=== PATIENT | male | born 1960 | race Caucasian/White ===

== ENCOUNTER → 2017-08-15 | Outpatient (CLI) | payer BC ==
[~2017-08-15] MED LIST: ADVICOR PO; ANT25 PO; ASCA500 PO; ASPEC81 PO; ATV5 PO; CHOL100010 PO; COQ10 PO; MELA3TAB7 PO; PANT40TA PO; POTAPOW29 PO; [UNRECOGNIZED DRUG - OTHER] PO
--- NOTE | 2017-08-15 16:32 | DIAGNOSTIC IMAGING REPORT ---
LEFT HIP 2 VIEWS HISTORY: LEFT HIP PAIN COMPARISON: None. FINDINGS: There is no fracture or dislocation. Soft tissues are unremarkable. Moderate osteoarthritis within the left hip demonstrated by cartilage space narrowing, marginal osteophytes, and subchondral sclerosis. IMPRESSION: No fractures. Moderate left hip osteoarthritis. Electronically signed by: Leonel Thakur M.D. 08/15/2017 4:31 PM Dictated Date/Time: 08/15/2017 4:30 PM
== END | disposition home or self-care (01) ==
LOC: C.RAD1850 16:16
PROVIDERS: ATTEND Family Medicine
DX: M16.12 Unilateral primary osteoarthritis, left hip (principal); E78.5 Hyperlipidemia, unspecified; E11.9 Type 2 diabetes mellitus without complications

== ENCOUNTER 2019-05-04 05:06 | Inpatient (IN) ==
--- NOTE | 2019-03-29 15:39 | PAT Medication Instructions ---
Medication Instructions Date of Service March 29, 2019 Home Medications Cbd Oil Cap 1 cap PO BID Medical Marijuana 1 dose INHALATION UD PRN coQ10 (ubiquinol) 100 mg PO BID losartan-hydrochlorothiazide 1 tab PO QAM lovastatin 10 mg PO HS meloxicam 15 mg PO DAILY metformin 1,000 mg PO QAM omega 0-thb-piw-fish oil [Fish Oil] 2 cap PO BID pantoprazole 40 mg PO DAILY PRN Continue as directed Cbd Oil Cap 1 cap PO BID Medical Marijuana 1 dose INHALATION UD PRN ASK your surgeon for instructions meloxicam 15 mg PO DAILY STOP taking 2 weeks before surgery (or as soon as possible if surgery is within 2 weeks) coQ10 (ubiquinol) 100 mg PO BID omega 9-dci-bvq-fish oil [Fish Oil] 2 cap PO BID DO NOT take the morning of surgery losartan-hydrochlorothiazide 1 tab PO QAM metformin 1,000 mg PO QAM Take morning of surgery With a small sip of water, OTHERWISE NOTHING TO EAT OR DRINK AFTER MIDNIGHT: pantoprazole 40 mg PO DAILY PRN (if needed) Take evening before surgery lovastatin 10 mg PO HS Other Notes If you have any questions please call us at [phone] or [phone] or [phone] or [phone]
--- NOTE | 2019-04-03 09:33 | Anesthesiology Consultation ---
Date of Service April 03, 2019 Assessment & Plan (1) Encounter for pre-operative examination: - Check BSG AM DOS Chart Review Chart Review: Acceptable Risk for Surgery and Patient seen in Pre Admission Testing Teaching & Discussion Pre-Anesthesia Teaching/Discussion Notes: Instructed NPO after midnight before surgery,except medications with 15 cc of water. Medication instructions provided according to the PAT guidelines. History Surgery Operation Date: 05/04/19 13:00 Proposed Procedures p Left Anterior Total Hip Replacement - Paulo Cooper DO Height/Weight Height: 5 ft 5 in Weight: 83.6 kg Allergies Allergy/AdvReac Type Severity Reaction Status Date / Time Stgrvmt-Vpj-Vsc Reductase Allergy Mild MYALGIAS Verified 04/03/19 09:46 Inhibitor ANTI-DEPRESSANTS Allergy Intermediate DISORIENTATION- Uncoded 04/03/19 09:46 UNSURE OF EXACT DRUG NAMES Medications Home Medications Medication Instructions Recorded Confirmed Last Taken Cbd Oil Cap 1 cap PO BID 03/29/19 03/29/19 Unknown Medical Marijuana 1 dose INHALATION UD PRN 03/29/19 03/29/19 Unknown coQ10 (ubiquinol) 100 mg PO BID 03/29/19 03/29/19 Unknown losartan-hydrochlorothiazide 1 tab PO QAM 03/29/19 03/29/19 Unknown lovastatin 10 mg PO HS 03/29/19 03/29/19 Unknown meloxicam 15 mg PO DAILY 03/29/19 03/29/19 Unknown metformin 1,000 mg PO QAM 03/29/19 03/29/19 Unknown omega 7-mxy-uqm-fish oil [Fish Oil] 2 cap PO BID 03/29/19 03/29/19 Unknown pantoprazole 40 mg PO DAILY PRN 03/29/19 03/29/19 Unknown Past Medical History Medical History Anxiety Depression Diabetes mellitus, type 2 NIDDM GERD (gastroesophageal reflux disease) CONTROLLED Hyperlipidemia Hypertension Osteoarthritis Sleep apnea NO DEVICE Exercise / Class Metabolic Activity II 4-5 Yardwork/Stairs/Walk up hill Past Family History Family History Mother No problems noted. Father Family history of diabetes mellitus Grandfather (Paternal) Family history of diabetes mellitus Grandmother (Paternal) Family history of diabetes mellitus Past Surgical History Surgical History History of colonoscopy History of esophagogastroduodenoscopy (EGD) History of nasal septoplasty History of tonsillectomy History of tooth extraction Hx of hemorrhoidectomy Hx of vasectomy S/P LASIK surgery of both eyes Past Anesthesia History No Hx of Anesthesia Complications and No Family Hx of Anesthesia Complications History of PONV No Hx of PONV and Hx of Motion Sickness (OCCASIONAL) Social History Smoking Status: Never smoker Do You Dip or Chew Tobacco: No Hx Alcohol Use: Yes Alcohol type: beer and hard liquor alcohol intake frequency: a few times a month Hx Substance Use: No Last Used Substance Other:: MEDICAL MARIJUANA- INHALATION PRN (WILL BRING CARD AM DOS) Review of Systems Patient denies chest pain, shortness of breath, dyspnea on exertion, cough, wheezing, palpitations. Physical Exam Vital Signs VITALS BP 164/95 P 60 TEMP 98.1 SP02 98%RA RESP 16 PHYSICAL Full neck and c-spine range of motion. Full TMJ range of motion. TMD 4 finger breaths Mallampati Score 3 Dentition: permanent implants on sides/back Lungs: clear throughout to auscultation Cardiac: regular rate and rhythm, no murmurs noted Spine: normal Carotid arteries: negative bruit Extremities: no edema Trimmed umanzor Testing Laboratory Results 04/03/19 10:06 04/03/19 10:06 04/03/19 04/03/19 04/03/19 10:06 10:06 10:06 PT 10.0 INR 1.0 APTT 27.1 Hemoglobin A1c 5.9 H Blood Type O Positive Antibody Screen NEGATIVE Electrocardiogram Date: 04/03/19 Findings: + NSR @ (61) Chest X-Ray Date: 04/03/19 Findings: + NAD
--- NOTE | 2019-04-03 10:38 | XRay Report ---
XR chest Pre-admission PA/Lat CLINICAL HISTORY: Preoperative chest COMPARISON STUDY: No previous studies for comparison. FINDINGS: The cardiac and mediastinal contours are normal. There is no evidence of focal pulmonary co nsolidation. There is no evidence of failure. No pleural effusions are visualized.[ IMPRESSION: No active disease in the chest. Electronically signed by: Issa Mccormick M.D. 04/03/2019 10:36 AM
[2019-04-03 10:44] LABS: Basophils # (auto) 0.02 K/uL (0-0.2); Basophils % (auto) 0.3 %; Eosinophils # (auto) 0.15 K/uL (0-0.5); Eosinophils % (auto) 2.3 %; Hematocrit (blood only) 42.5 % (42-52); Hemoglobin 15.7 g/dL (14.0-18.0); Immature Granulocytes # (auto) 0.02 K/uL (0.00-0.02); Immature Granulocytes % (auto) 0.3 %; Lymphocytes % (auto) 36.5 %; Mean Corpuscular Hgb Conc 36.9 g/dL (32-36); Mean Corpuscular Volume 83.8 fL (80-100); Mean Platelet Volume 9.3 fL (7.4-10.4); Monocytes # (auto) 0.36 K/uL (0.11-0.59); Monocytes % (auto) 5.5 %; Neutrophils # (auto) 3.62 K/uL (1.4-6.5); Neutrophils % (auto) 55.1 %; Platelet Count 178 K/uL (130-400); RDW Coefficient of Variation 12.1 % (11.5-14.5); RDW Standard Deviation 36.5 fL (36.4-46.3); Red Blood Count 5.07 M/uL (4.7-6.1); White Blood Count 6.57 K/uL (4.8-10.8)
[2019-04-03 10:52] LABS: Partial Thromboplastin Time 27.1 Seconds (21.0-31.0)
[2019-04-03 10:54] LABS: Estimated Average Glucose 123 mg/dl; Hemoglobin A1C 5.9 % (4.5-5.6)
[2019-04-03 10:55] LABS: BUN Creatinine Ratio 11.9 (10-20); Creatinine Clr Calc Pharmacy 74.4 ml/min; Est GFR (Non-African American) 76.8; Potassium 3.5 mmol/L (3.5-5.1)
--- NOTE | 2019-05-03 14:29 | History & Physical Report ---
Date of Service May 03, 2019 Assessment & Plan (1) Osteoarthritis of left hip: We will proceed with a left anterior total hip arthroplasty. Postoperatively he will be placed on aspirin for DVT prophylaxis. He would like to use Dilaudid for pain control postoperatively. He will be kept overnight in the hospital for postoperative medical management. He plans to use energy physical therapy upon discharge. Present on Admission?: Yes History of Present Illness Chief Complaint: Primary osteoarthritis of the left hip Primary Care Provider: John Martinez is a pleasant 59-year-old male who has been dealing with chronic increasing left hip and groin pain. X-rays and clinical examination have been diagnostic for primary osteoarthritis of the left hip. After failing conservative treatment, he has elected to proceed with a left anterior total hip arthroplasty. Allergies Allergy/AdvReac Type Severity Reaction Status Date / Time Ywnjcdl-Vhz-Vls Reductase Allergy Mild MYALGIAS Verified 04/03/19 09:46 Inhibitor ANTI-DEPRESSANTS Allergy Intermediate DISORIENTATION- Uncoded 04/03/19 09:46 UNSURE OF EXACT DRUG NAMES Home Medications Home Medications Medication Instructions Recorded Confirmed Type Cbd Oil Cap 1 cap PO BID 03/29/19 03/29/19 History Medical Marijuana 1 dose INHALATION UD PRN 03/29/19 03/29/19 History coQ10 (ubiquinol) 100 mg PO BID 03/29/19 03/29/19 History losartan-hydrochlorothiazide 1 tab PO QAM 03/29/19 03/29/19 History lovastatin 10 mg PO HS 03/29/19 03/29/19 History meloxicam 15 mg PO DAILY 03/29/19 03/29/19 History metformin 1,000 mg PO QAM 03/29/19 03/29/19 History omega 7-yhg-iyp-fish oil [Fish Oil] 2 cap PO BID 03/29/19 03/29/19 History pantoprazole 40 mg PO DAILY PRN 03/29/19 03/29/19 History Past Med/Surg History Medical History Anxiety Depression Diabetes mellitus, type 2 NIDDM GERD (gastroesophageal reflux disease) CONTROLLED Hyperlipidemia Hypertension Osteoarthritis Sleep apnea NO DEVICE Surgical History History of colonoscopy History of esophagogastroduodenoscopy (EGD) History of nasal septoplasty History of tonsillectomy History of tooth extraction Hx of hemorrhoidectomy Hx of vasectomy S/P LASIK surgery of both eyes Family History Mother No problems noted. Father Family history of diabetes mellitus Grandfather (Paternal) Family history of diabetes mellitus Grandmother (Paternal) Family history of diabetes mellitus Social History Preferred Language: Azeri Communication Ability: Effective Mechanical Designer Required: No Beliefs That Will Affect Care: None Current Living Situation: Spouse Other Information That Helps Us Care for You: No Feels Safe at Home: Yes Safety Concerns: Feels Safe At This Time Smoking Status: Never smoker Do You Dip or Chew Tobacco: No Second Hand Exposure: Yes ( A CHILD) Tobacco Cessation Education Requested by Patient: No Hx Alcohol Use: Yes Alcohol type: beer and hard liquor Hx Substance Use: No Review of Systems All systems reviewed & are unremarkable except as noted in HPI & below Physical Exam Constitutional: WD/WN, vitals as above Eyes: PERRL, conjunctivae normal, anicteric sclerae ENMT: external ear and nose normal, oropharynx normal Neck: trachea midline, no thyromegaly Respiratory: normal respiratory effort Cardiovascular: RRR, no murmur, no edema Gastrointestinal (Abdomen): normal bowel sounds, soft, nontender, no hepatosplenomegaly Musculoskeletal: Physical examination of the left hip reveals decreased range of motion with flexion, internal and external rotation. There is significant groin pain with forced internal rotation of the hip his leg lengths are essentially equal. Psychiatric: A+Ox3, euthymic affect Results & Data Diagnostic Findings Radiographs of the left hip and pelvis demonstrate advanced osteoarthritis with joint space narrowing osteophyte formation and vyoc-pj-ricq articulation.
[2019-05-04] MEDS ORDERED: BUPIVACAINE LIPOSOME/PF 266 MG, BUPIVACAINE/EPINEPHRINE 50 ML, SODIUM CHLORIDE 0.9% 30 ... INFIL SCH (06:00)
[2019-05-04] MEDS ORDERED: LR 60ML/HR IV SCH (06:00)
[2019-05-04] MEDS ORDERED: LR 500ML BOLUS, THEN 15ML/HR IV SCH (06:00)
[2019-05-04] MEDS ORDERED: ROPIVACAINE 0.5% HCL/PF 150 MG, BUPIVACAINE 0.5% MPF 30 ML, EPINEPHrine 30MG/30ML (OR U... INFIL SCH (06:00)
[2019-05-04] MEDS ORDERED: TRANEXAMIC ACID 1,000 MG **IV Pre-op IV SCH (06:00)
[2019-05-04] MEDS ORDERED: GABAPENTIN 300 MG x 2 PO SCH (06:00)
[2019-05-04] MEDS ORDERED: LR 500ML BOLUS IV SCH (06:00)
[2019-05-04] MEDS ORDERED: CEFAZOLIN 2000MG 2,000 MG/15 ML SYR IV SCH (06:00)
[2019-05-04] MEDS ORDERED: FAMOTIDINE 20 MG TAB PO SCH (06:00)
[2019-05-04] MEDS ORDERED: ACETAMINOPHEN 500 MG TAB PO SCH (06:00)
[2019-05-04] MEDS ORDERED: TRANEXAMIC ACID 1,000 MG **IV Intra-op IV SCH (06:30)
[2019-05-04] MEDS ORDERED: BUPIVACAINE 0.5 % 5 MG/1 ML PF 10ML VIAL ONE (06:37)
[2019-05-04] MEDS ORDERED: LIDOCAINE HCL 2% 2 ML VIAL/AMP(20MG/ML) INFIL ONE (06:37)
[2019-05-04] MEDS ORDERED: PROPOFOL IV EMULSION 10 MG/ML 20 ML VIAL IV ONE ×3 (06:37→08:10)
[2019-05-04] MEDS ORDERED: MIDAZOLAM HCL 1 MG/ML 2ML VIAL ONE ×2 (06:37)
[2019-05-04] MEDS ORDERED: ORTHO JOINT ANESTHETIC ONE (06:43)
--- NOTE | 2019-05-04 06:54 | History & Physical Bridge Note ---
Date of Service May 04, 2019 History & Physical Bridge Note I have examined the patient, reviewed the History & Physical and in the interval since the performance of the History & Physical I have noted the following changes of clinical significance: no changes noted
[2019-05-04] MEDS ORDERED: HYDROmorphone INJ 1 MG/ML SYRINGE IV PRN (06:57)
[2019-05-04] MEDS ORDERED: ATROPINE SULFATE 0.1 MG/ML 10ML SYR IV PRN (06:57)
[2019-05-04] MEDS ORDERED: ONDANSETRON INJ 2 MG/ML 2 ML VIAL IV PRN ×2 (06:57→10:21)
[2019-05-04] MEDS ORDERED: PHENYLEPHRINE 100MCG/ML 5ML SYR IV PRN (06:57)
[2019-05-04] MEDS ORDERED: ePHEDrine sulfate 50 MG/ML AMP IV PRN (06:57)
[2019-05-04] MEDS ORDERED: KETOROLAC 30 MG/ML VIAL IV PRN (06:57)
[2019-05-04] MEDS ORDERED: PHENYLEPHRINE 100MCG/ML 5ML SYR ONE (08:03)
[2019-05-04] MEDS ORDERED: ePHEDrine sulfate 50 MG/ML SYR ONE (08:03)
--- NOTE | 2019-05-04 08:28 | Operative Report ---
Post Operative Report Pre & Post Diagnosis Operation Date: 05/04/19 07:00 Pre-Op Diagnosis: Left Hip Degenerative Joint Disease Post-Op Diagnosis: Left Hip Degenerative Joint Disease Procedure Operation Date: 05/04/19 07:00 Actual Procedures p Left Anterior Total Hip Replacement- Uncemented(Left) - Paulo Cooper DO Surgeon Paulo Cooper DO Watch Inspector Final Movement Paulo Benrabe PAC Estimated Blood Loss 150 Findings Consistent with Post-Op Diagnosis Specimens Left femoral head Complications none Disposition Disposition: Recovery Room Indications Juan is a pleasant 59-year-old male presented my office with chronic increasing left hip and groin pain. X-rays and clinical examination were diagnostic for primary osteoarthritis of the left hip. After failing conservative treatment, he elected to proceed with a left anterior total hip arthroplasty. Description of Procedure Implants used Biomet Taperloc total hip arthroplasty system with a size 10 standard offset Taperloc stem, a 50 mm G7 cup with a 25mm screw, an E1 polyethylene liner, a 36 mm ceramic head with a +6 neck. Patient arrived at the hospital for the above procedure. They were seen in the preoperative holding area and the operative extremity was identified and signed. They were given a spinal anesthetic. They were given a preoperative antibiotic and TXA. They were taken back To the operating room and laid on the table in the supine position. The leg was brought out through a Puristst leg positioner. The hip was then prepped and draped in sterile fashion. A timeout was done and the patient in upper extremities properly identified. An anterior approach was used. Dissection was taken down through the fascia and the tensor muscle belly was retracted laterally and the rectus was retracted medially. The circumflex vessels were identified and ligated. The capsule was then incised and tagged for later repair. The femoral neck was then cut and the femoral head was removed. The acetabulum was exposed. Time was spent doing a complete circumferential labral release. Sequential reaming of the acetabulum up to a size 49 reamer was done. Final reamings were done under fluoroscopy to ensure appropriate version. A Biomet 50 mm G7 cup was then impacted into place. A single 25 mm screw was placed. The E1 polyethylene liner was then snapped into place. Surrounding soft tissues were then injected with 100 cc of an orthopedic pain control cocktail. The proximal femur was then exposed. Sequential broaching up to a size 10 broach was done. Off that broach a size 36 head with a +6 neck was trialed. The hip was reduced and fluoroscopic images showed anatomic alignment of the implants in acceptable length. The broach was removed. The final size 10 standard offset Taperloc stem was then impacted into place. A ceramic 36 mm head with a +6 neck was then impacted into place in the hip was reduced. Final fluoroscopic images showed anatomic reduction of the hip. The capsule was then closed with #1 Vicryl suture. A dilute betadyne lavage was then done for 3 minutes. The joint was then irrigated with normal saline solution. The fascia was closed with #1 PDS suture. Skin was closed with 2-0 Vicryl, haley, and a Renata VAC dressing. The patient was then transferred to a hospital bed and taken to the post anesthesia care unit in stable condition. They tolerated the procedure well. I attest to the content of the Intraoperative Record and any orders documented therein. Any exceptions are noted below.
--- NOTE | 2019-05-04 08:36 | Fluoroscopy Report ---
FL hip LT 1V CLINICAL HISTORY: LEFT ANTERIOR HIPhip arthroplasty COMPARISON STUDY: None FLUOROSCOPY TIME: 1 minute 12 seconds NUMBER OF FLUOROSCOPIC IMAGES: FINDINGS: Anatomic alignment posttotal left hip arthroplasty. Contact between the prosthetic and Bone is good.. IMPRESSION: Anatomic alignment posttotal left hip arthroplasty. The above report was generated using voice recognition software. It may contain grammatical, syntax or spelling errors. Electronically signed by: Daniel Singer M.D. 05/04/2019 8:34 AM
--- NOTE | 2019-05-04 09:24 | XRay Report ---
XR hip 1V LT w pelvis CLINICAL HISTORY: Postoperative evaluation. COMPARISON: Pelvis and left hip radiographs March 24, 2018. FINDINGS: Alignment of the total left hip arthroplasty is anatomic. There is no periprosthetic fract ure or unexpected radiopaque foreign body. There are skin haley. Acetabular screw is noted. There i s scrotal surgical clips. IMPRESSION: Expected findings following total left hip arthroplasty. Electronically signed by: Nathan Whittaker M.D. 05/04/2019 9:23 AM
[2019-05-04] MEDS ORDERED: METOCLOPRAMIDE HCL INJ 5 MG/ML 2 ML VIAL IV PRN (10:21)
[2019-05-04] MEDS ORDERED: NALOXONE HCL 0.4 MG/1 ML VIAL/CARP IV PRN (10:21)
[2019-05-04] MEDS ORDERED: MAGNESIUM HYDROXIDE SUSP 30 ML UDC PO PRN (10:21)
[2019-05-04] MEDS ORDERED: PHARMACY GLYCEMIC MGMT CONSULT STA (10:21)
[2019-05-04] MEDS ORDERED: BISACODYL 10 MG SUPP PR PRN (10:21)
[2019-05-04] MEDS ORDERED: PANTOprazole 40 MG TAB PO PRN (10:21)
[2019-05-04] MEDS ORDERED: SODIUM CHLORIDE 0.9% 1000ML 1,000 ML IV SCH (10:21)
[2019-05-04] MEDS ORDERED: HYDROmorphone INJ 0.5 MG/0.5 ML SYR IV PRN (10:21)
--- NOTE | 2019-05-04 10:36 | Anesthesiology Progress Note ---
Date of Service May 04, 2019 Anesthesia Post Procedure Vital Signs Vital Signs: Temp Pulse Pulse Resp BP Pulse Ox 05/04/19 09:55 71 15 144/75 H 93 05/04/19 09:45 36.8 C 60 21 137/88 95 05/04/19 09:35 66 21 147/85 H 95 05/04/19 09:25 67 21 144/80 H 96 05/04/19 09:15 72 22 142/82 H 96 05/04/19 09:05 69 16 152/79 H 96 05/04/19 08:55 73 16 149/86 H 99 05/04/19 08:45 37.0 C 78 22 150/94 H 97 05/04/19 05:42 36.8 C 82 16 188/99 H 95 Transfer of Care Handoff Completed per policy Notes Mental Status: alert / awake / arousable Patient Amnestic to Procedure: Yes Nausea / Vomiting: adequately controlled Pain: adequately controlled Airway Patency, RR, SpO2: stable & adequate BP & HR: stable & adequate Hydration State: stable & adequate Neuraxial Anesthesia: was administered and sensory block is resolving Anesthetic Complications: no major complications apparent
[2019-05-04] MEDS ORDERED: PHARMACY GLYCEMIC MGMT CONSULT SCH (10:45)
[2019-05-04] MEDS ORDERED: GLUCOSE 40% GEL 15 GM TUBE PO PRN (10:45)
[2019-05-04] MEDS ORDERED: CARBOHYDRATES FOR HYPOGLYCEMIA PO PRN (10:45)
[2019-05-04] MEDS ORDERED: DEXTROSE 50% 50 ML SYRINGE IV PRN (10:45)
[2019-05-04] MEDS ORDERED: GLUCOSE 10 TABS/TUBE PO PRN (10:45)
[2019-05-04] MEDS ORDERED: GLUCAGON FOR INJ 1 MG VIAL SQ PRN (10:45)
--- NOTE | 2019-05-04 10:52 | Pharmacy Report ---
Glycemic Control Consultation - Date of Service May 04, 2019 - Scope Scope: Glycemic Pharmacist consulted by Dr Cooper on 05/04/19 for glycemic control and to write orders per [facility] inpatient glycemic control protocol - Objective Weight: 81 kg Accuchecks BSG (last 24hrs): 05/04/19 08:53 POC Glucose 164 H HbA1c: Hemoglobin A1c 5.9 % (4.5-5.6) H 04/03/19 10:06 - Recent Pertinent Medications Outpatient Anti-diabetic Regimen: * Metformin 1 g PO Daily * A1c = 5.9 % 04/03/19 Risk Factors for Insulin Resistance: * Recent Surgery: s/p LIZA * Diet: Type 2 DM - Assessment & Plan Assessment & Plan: ASSESSMENT: * 59 year old male, s/p LIZA, type 2 diabetic well controlled as outpatient only on metformin. * Oral agents are not recommended for inpatient use d/t drug interactions, changing PO intake, and difficulty titrating for acute hyper/hypoglycemia. ADA recommends re-initiating outpatient oral agents 1-2 days prior to discharge if/when appropriate if they were held on admission. * Will hold oral agent today and utilize SQ basal bolus insulin regimen which is the recommended regimen for inpatient glycemic control. * Will initiate weight based insulin dosing for insulin elena patient and titrate based on BSG trends. * ADA & AACE recommend a goal blood sugar range 140-180 mg/dl for the majority of critically ill & non-critically ill patients. However, more stringent targets may be selected in individual cases. Will utilize more stringent goal of 110-140mg/dl based on patient age & comorbidities. Additionally, tighter glycemic control is warranted to facilitate wound/infection healing. PLAN FOR INPATIENT GLYCEMIC CONTROL: * Holding outpatient oral diabetes medication today - start Metformin 1g PO Daily tomorrow morning * Bolus insulin * NovoLog per scale ACHS or Q6hrs while NPO * Goal Range: Low 110 mg/dL - High 140 mg/dL * Correction Factor: 35 mg/dL/unit * Nutritional / Prandial insulin per carb ratio of 1 unit per 12 grams CHO consumed DISCHARGE RECOMMENDATIONS: * A1c 5.9% indicates good glycemic control, continue metformin 1g daily and lifestyle modifications * Please note that the plan above was derived based on current level of insulin resistance and hospital stress. These recommendations are appropriate for inpatient admission only. Plan of care upon discharge will need to be reassessed to avoid potential outpatient hypo/hyperglycemia. Thank you.
[2019-05-04] MEDS: INSULIN ASPART 100 UNITS/ML 3 ML PEN SC SCH ×3 (13:23→21:45)
[2019-05-04] MEDS: MULTIVITAMIN TAB PO SCH (13:24)
[2019-05-04] MEDS: LOSARTAN/HCTZ 50/12.5MG TAB PO SCH (13:26)
[2019-05-04] MEDS: DOCUSATE SODIUM 100 MG CAP PO SCH ×2 (13:26→21:38)
[2019-05-04] MEDS: ASPIRIN 81 MG ECTAB PO SCH ×2 (13:26→21:42)
[2019-05-04] MEDS: KETOROLAC 30 MG/ML VIAL IV SCH ×3 (13:27→23:28)
[2019-05-04] MEDS: ACETAMINOPHEN 500 MG TAB PO SCH ×2 (13:27→21:40)
[2019-05-04] MEDS: CEFAZOLIN 2000MG 2,000 MG/15 ML SYR IV SCH ×2 (14:49→21:50)
[2019-05-04] MEDS ORDERED: SENNA 8.6 MG TAB PO SCH (21:00)
[2019-05-04] MEDS ORDERED: LOVASTATIN 20 MG TAB PO SCH (21:00)
[2019-05-04] MEDS: HYDROmorphone HCL 2 MG TAB PO PRN (21:41)
[2019-05-05] MEDS ORDERED: INSULIN ASPART 100 UNITS/ML 3 ML PEN SC SCH ×2 (00:01→07:30)
[2019-05-05] MEDS: KETOROLAC 30 MG/ML VIAL IV SCH (05:22)
[2019-05-05] MEDS: ACETAMINOPHEN 500 MG TAB PO SCH (05:22)
[2019-05-05 06:05] LABS: Basophils # (auto) 0.01 K/uL (0-0.2); Basophils % (auto) 0.1 %; Eosinophils # (auto) 0.05 K/uL (0-0.5); Eosinophils % (auto) 0.4 %; Hematocrit (blood only) 38.4 % (42-52); Hemoglobin 13.8 g/dL (14.0-18.0); Immature Granulocytes # (auto) 0.03 K/uL (0.00-0.02); Immature Granulocytes % (auto) 0.3 %; Lymphocytes # (auto) 2.44 K/uL (1.2-3.4); Lymphocytes % (auto) 21.3 %; Mean Corpuscular Hgb Conc 35.9 g/dL (32-36); Mean Platelet Volume 9.6 fL (7.4-10.4); Monocytes # (auto) 1.02 K/uL (0.11-0.59); Monocytes % (auto) 8.9 %; Neutrophils # (auto) 7.93 K/uL (1.4-6.5); Platelet Count 168 K/uL (130-400); RDW Standard Deviation 36.5 fL (36.4-46.3); Red Blood Count 4.57 M/uL (4.7-6.1); White Blood Count 11.48 K/uL (4.8-10.8)
[2019-05-05 06:43] LABS: BUN Creatinine Ratio 11.9 (10-20); Calcium 9.2 mg/dl (8.5-10.1); Creatinine Clr Calc Pharmacy 86.5 ml/min; Est GFR (African American) 107.7; Est GFR (Non-African American) 92.9; Potassium 3.5 mmol/L (3.5-5.1)
[2019-05-05] MEDS ORDERED: PNEUMOCOCCAL ADMINISTRATION CHARGE ONE (07:45)
[2019-05-05] MEDS ORDERED: PNEUMOCOCCAL POLYSACCHARIDES 25 MCG/0.5 ML VIAL/SYR IM ONE (07:45)
[2019-05-05] MEDS ORDERED: METFORMIN HCL 500 MG TAB PO SCH (09:00)
[2019-05-05] MEDS: DOCUSATE SODIUM 100 MG CAP PO SCH (09:00)
[2019-05-05] MEDS: MULTIVITAMIN TAB PO SCH (09:01)
[2019-05-05] MEDS: ASPIRIN 81 MG ECTAB PO SCH (09:01)
[2019-05-05] MEDS: LOSARTAN/HCTZ 50/12.5MG TAB PO SCH (09:03)
--- NOTE | 2019-05-05 09:22 | Orthopedic Progress Note ---
Date of Service May 05, 2019 Assessment & Plan (1) Osteoarthritis of left hip: Overall he is doing very well. Is not having much pain in the left hip. He will be seen by physical therapy this morning for range of motion exercises and ambulation. He can be discharged home later this morning with Dilaudid for pain. He will follow-up with orthopedics in 2 weeks. Present on Admission?: Yes Subjective Juan was seen and examined at bedside this morning. Overall he is doing very well. Is not having much pain in the left hip. He is Андрей been up and ambulating around his room. He has no complaints. Physical Exam Musculoskeletal: On physical examination of the left hip, the Renata VAC dressings to suction. His leg lengths are equal. He is active dorsiflexion and plantarflexion of his left ankle. Sensations intact throughout. Results & Data Vital Signs (Past 12 Hours) Vital Signs Temp Pulse Resp BP Pulse Ox 05/05/19 09:02 152/85 H 05/05/19 07:12 37.2 C 68 18 136/72 98 05/05/19 03:17 36.8 C 72 16 125/75 99 05/04/19 23:18 37.2 C 78 18 149/79 H 97 Laboratory Results H & H 04/03/19 05/05/19 Range/Units 10:06 05:37 Hgb 15.7 13.8 L (14.0-18.0) g/dL Hct 42.5 38.4 L (42-52) % Coagulation 04/03/19 Range/Units 10:06 INR 1.0 (0.9-1.1) Diagnostic Findings Postoperative x-rays of the left hip show the prosthesis to be in anatomic alignment without any evidence of fracture, dislocation, or loosening.
--- NOTE | 2019-05-05 09:23 | Discharge Summary ---
Date of Service May 05, 2019 Admission HPI Per Admitting Provider Juan is a pleasant 59-year-old male who has been dealing with chronic increasing left hip and groin pain. X-rays and clinical examination have been diagnostic for primary osteoarthritis of the left hip. After failing conservative treatment, he has elected to proceed with a left anterior total hip arthroplasty. Specialty Data Orthopedic H & H 04/03/19 05/05/19 Range/Units 10:06 05:37 Hgb 15.7 13.8 L (14.0-18.0) g/dL Hct 42.5 38.4 L (42-52) % Coagulation 04/03/19 Range/Units 10:06 INR 1.0 (0.9-1.1) Discharge Data Consultations 05/05/19 08:00 Consult Case Management - Discharge Planning Routine Procedures Performed Operation Date: 05/04/19 07:00 Actual Procedures p Left Anterior Total Hip Replacement- Uncemented(Left) - Paulo Cooper, DO Discharge Instructions On May 04, 2019 team arrived at [facility] in the hospital and underwent a left anterior total hip arthroplasty without complication. He had a spinal anesthetic. Postoperatively he was started on aspirin for DVT prophylaxis and discharged to general orthopedic floors. His hospital course is uneventful. On postop day #1 his H&H was stable and his pain was well controlled. He was able to ambulate well with physical therapy. He was then discharged home with [facility]. He will follow-up with orthopedics in 2 weeks.
[2019-05-05] MEDS: HYDROmorphone HCL 2 MG TAB PO PRN (11:07)
--- NOTE | 2019-05-05 11:40 | Anesthesiology Progress Note ---
Date of Service May 05, 2019 Anesthesia Post Procedure Vital Signs Vital Signs: Temp Pulse Resp BP Pulse Ox 05/05/19 09:02 152/85 H 05/05/19 07:12 37.2 C 68 18 136/72 98 05/05/19 03:17 36.8 C 72 16 125/75 99 05/04/19 23:18 37.2 C 78 18 149/79 H 97 05/04/19 19:11 37.1 C 65 17 137/81 98 05/04/19 15:15 36.8 C 79 18 166/96 H 98 05/04/19 13:07 36.6 C 74 20 164/97 H 96 05/04/19 12:08 36.6 C 65 20 159/97 H 96 Notes Mental Status: alert / awake / arousable and participated in evaluation Patient Amnestic to Procedure: Yes Nausea / Vomiting: adequately controlled Pain: adequately controlled Airway Patency, RR, SpO2: stable & adequate Hydration State: stable & adequate Neuraxial Anesthesia: was administered and sensory block is resolving Anesthetic Complications: no major complications apparent and Pt Satisfied with anesthetic care
== END 2019-05-05 11:50 | disposition home health service (06) | DRG 470 ==
LOC: ASU 05:06 → 3E 08:50